=== PATIENT | female | born 1995 | race Two or more races ===

== ENCOUNTER → 2022-08-07 | Outpatient (CLI) | payer OTHER | LOC: M PLALAB 11:14 | PROVIDERS: ATTEND Advanced Practice Midwife | DX: Z34.90 Encounter for supervision of normal pregnancy, unspecified, unspecified trimester (principal) ==

== ENCOUNTER → 2022-08-09 | Outpatient (CLI) | payer OTHER | LOC: M PLALAB 08:21 | PROVIDERS: ATTEND Advanced Practice Midwife | DX: Z34.90 Encounter for supervision of normal pregnancy, unspecified, unspecified trimester (principal) ==

== ENCOUNTER → 2022-09-05 | Outpatient (REF) | payer OTHER | LOC: M PLALAB 10:25 | PROVIDERS: ATTEND Advanced Practice Midwife | DX: Z53.9 Procedure and treatment not carried out, unspecified reason (principal) ==

== ENCOUNTER → 2022-09-15 | Outpatient (CLI) | payer OTHER ==
[2022-09-15 14:13] LABS: HEMOGLOBIN 12.3 g/dl (12.0-15.5); MEAN CORPUSCULAR HEMOGLOBIN 30.1 pg (27.0-33.0); MEAN CORPUSCULAR HGB CONC 33.2 g/dl (32.0-36.5); MEAN CORPUSCULAR VOLUME 90.5 fl (80.0-96.0); PLATELET COUNT, AUTOMATED 298 10^3/uL (150-450); RED BLOOD COUNT 4.09 10^6/uL (4.00-5.40); WHITE BLOOD COUNT 9.5 10^3/uL (4.0-10.0)
[2022-09-15 15:16] LABS: HIV 1&2 SCREEN CENTAUR NEGATIVE (NEGATIVE)
[2022-09-15 15:25] LABS: HEPATITIS C VIRUS ABY INDEX 0.1 INDEX (<0.8)
[2022-09-15 16:06] LABS: GC DNA AMPLIFICATION NEGATIVE (NEGATIVE)
== END ==
LOC: M PLALAB 10:02
PROVIDERS: ATTEND Advanced Practice Midwife
DX: Z34.01 Encounter for supervision of normal first pregnancy, first trimester (principal); Z3A.00 Weeks of gestation of pregnancy not specified

== ENCOUNTER → 2022-11-08 | Outpatient (CLI) | payer OTHER | LOC: M WHC 13:20 | PROVIDERS: ATTEND Advanced Practice Midwife | DX: Z34.02 Encounter for supervision of normal first pregnancy, second trimester (principal); Z3A.19 19 weeks gestation of pregnancy ==

== ENCOUNTER → 2022-12-01 | Outpatient (CLI) | payer OTHER | LOC: M WHC 11:47 | PROVIDERS: ATTEND Obstetrics & Gynecology | DX: Z34.02 Encounter for supervision of normal first pregnancy, second trimester (principal) ==

== ENCOUNTER → 2022-12-05 | Outpatient (CLI) | payer OTHER ==
[2022-12-05 14:27] LABS: HEMATOCRIT 33.2 % (36.0-47.0); HEMOGLOBIN 10.8 g/dl (12.0-15.5); MEAN CORPUSCULAR HEMOGLOBIN 30.6 pg (27.0-33.0); MEAN CORPUSCULAR HGB CONC 32.5 g/dl (32.0-36.5); MEAN CORPUSCULAR VOLUME 94.1 fl (80.0-96.0); PLATELET COUNT, AUTOMATED 263 10^3/uL (150-450); RED BLOOD COUNT 3.53 10^6/uL (4.00-5.40); WHITE BLOOD COUNT 11.9 10^3/uL (4.0-10.0)
== END ==
LOC: M PLALAB 09:42
PROVIDERS: ATTEND Advanced Practice Midwife
DX: Z34.02 Encounter for supervision of normal first pregnancy, second trimester (principal)

== ENCOUNTER → 2022-12-05 | Outpatient (CLI) | payer OTHER | LOC: M WHC 10:26 | PROVIDERS: ATTEND Advanced Practice Midwife | DX: Z34.02 Encounter for supervision of normal first pregnancy, second trimester (principal) ==

== ENCOUNTER → 2022-12-29 | Outpatient (CLI) | payer OTHER | LOC: M RAD 12:58 | PROVIDERS: ATTEND Advanced Practice Midwife | DX: Z34.02 Encounter for supervision of normal first pregnancy, second trimester (principal); Z3A.26 26 weeks gestation of pregnancy ==

== ENCOUNTER 2023-02-28 11:45 | Outpatient (CLI) | payer OTHER ==
[2023-02-28] VITALS (31 sets, daily range): BP systolic 131–169; BP diastolic 57–105
[~2023-02-28] VITALS: Ht 157.5 cm; Wt 113.2 kg
[2023-02-28] MEDS ORDERED: ESGI1CAP PO (12:16)
[2023-02-28] MEDS ORDERED: ACET-897 PO (12:16)
[2023-02-28] MEDS ORDERED: PRENTAB9 PO (12:16)
[2023-02-28] MEDS ORDERED: TUMS750C5 PO (12:16)
[2023-02-28] MEDS ORDERED: HOME MED LIST COMPLETE! XX SCH (12:20)
[2023-02-28 12:50] LABS: HEMATOCRIT 31.7 % (36.0-47.0); HEMOGLOBIN 10.3 g/dl (12.0-15.5); MEAN CORPUSCULAR HEMOGLOBIN 28.7 pg (27.0-33.0); MEAN CORPUSCULAR HGB CONC 32.5 g/dl (32.0-36.5); MEAN CORPUSCULAR VOLUME 88.3 fl (80.0-96.0); PLATELET COUNT, AUTOMATED 296 10^3/uL (150-450); RED BLOOD COUNT 3.59 10^6/uL (4.00-5.40); WHITE BLOOD COUNT 11.7 10^3/uL (4.0-10.0)
[2023-02-28 13:20] LABS: URIC ACID 4.4 MG/DL (3.1-7.8)
[2023-02-28 13:22] LABS: LDH LACTATE DEHYDROGENASE 197 U/L (120-246)
[2023-02-28 13:23] LABS: ALT/SGPT 10 U/L (7.0-40); AST/SGOT 14 U/L (<34); BILIRUBIN,TOTAL 0.3 MG/DL (0.3-1.2); CREATININE FOR GFR 0.47 MG/DL (0.55-1.30); GLOMERULAR FILTRATION RATE > 60.0 (>60)
[2023-02-28 13:30] LABS: TOTAL PROTEIN,RANDOM URINE 19.5 MG/DL (0.0-14.0)
[2023-02-28 13:35] LABS: CREATININE,RANDOM URINE 90.6 MG/DL
[2023-02-28] MEDS ORDERED: BETAMETHASONE SOLUSPAN 6MG/ML 5ML VIAL IM SCH (14:00)
[2023-02-28] MEDS ORDERED: LABETALOL 100MG/20ML VIAL IV STA (18:59)
[2023-02-28] MEDS: LABETALOL 100MG TAB PO SCH (19:13)
[2023-02-28] MEDS ORDERED: LABETALOL 100MG TAB PO SCH (21:00)
[2023-03-01] VITALS (7 sets, daily range): BP systolic 120–143; BP diastolic 55–84
[2023-03-01] MEDS: LABETALOL 100MG TAB PO SCH (08:11)
[2023-03-01] MEDS ORDERED: LABE100T6 PO (08:54)
== END 2023-03-01 08:15 | disposition home or self-care (01) ==
LOC: M LDO 11:45
PROVIDERS: ATTEND Advanced Practice Midwife
DX: O13.3 Gestational [pregnancy-induced] hypertension without significant proteinuria, third trimester (principal); Z3A.35 35 weeks gestation of pregnancy
CPT/HCPCS: 36415; 59025; 76815; 76816; 82247; 82565; 82570; 83615; 84156; 84450; 84460; 84550; 85027; 86780; 86850; 86900; 86901; 96372; G0463; J0702

== ENCOUNTER → 2023-02-28 | Outpatient (REF) | payer OTHER ==
[~2023-02-28] MED LIST: ACET-897 PO; ESGI1CAP PO; LABE100T6 PO; PRENTAB9 PO; TUMS750C5 PO
== END ==
LOC: M SFHCWAGY 16:46
PROVIDERS: ATTEND Advanced Practice Midwife
DX: Z36.85 Encounter for antenatal screening for Streptococcus B (principal)

== ENCOUNTER → 2023-02-28 | Outpatient (REF) | payer OTHER | LOC: M PLALAB 13:24 | PROVIDERS: ATTEND Advanced Practice Midwife | DX: Z53.9 Procedure and treatment not carried out, unspecified reason (principal) ==

== ENCOUNTER 2023-03-01 13:42 | Outpatient (CLI) | payer OTHER ==
[~2023-03-01] VITALS: Ht 157.5 cm; Wt 113.9 kg
[2023-03-01 13:57] VITALS: BP 123/66; O2SAT 99
[2023-03-01] MEDS ORDERED: HOME MED LIST COMPLETE! XX SCH (14:10)
[2023-03-01] MEDS ORDERED: BETAMETHASONE SOLUSPAN 6MG/ML 5ML VIAL IM ONE (14:20)
== END 2023-03-01 14:45 | disposition home or self-care (01) ==
LOC: M LDO 13:42
PROVIDERS: ATTEND Obstetrics & Gynecology
DX: O13.3 Gestational [pregnancy-induced] hypertension without significant proteinuria, third trimester (principal); Z3A.35 35 weeks gestation of pregnancy
CPT/HCPCS: 59025; 96372; G0463; J0702

== ENCOUNTER 2023-03-11 07:30 | Inpatient (IN) | payer OTHER ==
[~2023-03-11] VITALS: Ht 157.5 cm; Wt 114.0 kg
[2023-03-11] VITALS (25 sets, daily range): BP systolic 119–177; BP diastolic 54–83
[2023-03-11] MEDS ORDERED: LIDOCAINE 1% MDV 20ML VIAL INFIL PRN (08:20)
[2023-03-11] MEDS ORDERED: OXYTOCIN DRIP 30 UNITS in IV 1 EA IV PRN (08:20)
[2023-03-11] MEDS: miSOPROStol 50MCG 1/2 TABLET SL SCH ×4 (09:16→21:00)
[2023-03-11 09:21] LABS: HEMATOCRIT 30.1 % (36.0-47.0); HEMOGLOBIN 9.6 g/dl (12.0-15.5); MEAN CORPUSCULAR HEMOGLOBIN 28.6 pg (27.0-33.0); MEAN CORPUSCULAR HGB CONC 31.9 g/dl (32.0-36.5); MEAN CORPUSCULAR VOLUME 89.6 fl (80.0-96.0); PLATELET COUNT, AUTOMATED 270 10^3/uL (150-450); RED BLOOD COUNT 3.36 10^6/uL (4.00-5.40); WHITE BLOOD COUNT 12.8 10^3/uL (4.0-10.0)
[2023-03-11 09:52] LABS: URIC ACID 5.4 MG/DL (3.1-7.8)
[2023-03-11 09:54] LABS: LDH LACTATE DEHYDROGENASE 159 U/L (120-246)
[2023-03-11 09:55] LABS: ALT/SGPT < 9 U/L (7.0-40); AST/SGOT < 8 U/L (<34); BILIRUBIN,TOTAL 0.3 MG/DL (0.3-1.2); CREATININE FOR GFR 0.54 MG/DL (0.55-1.30); GLOMERULAR FILTRATION RATE > 60.0 (>60)
[2023-03-11] MEDS ORDERED: EPIDURAL/PCA KEYS XX PRN (20:55)
[2023-03-11] MEDS ORDERED: ePHEDrine SULFATE 25 MG/5 ML(5MG/ML) SYRINGE IVP PRN (20:55)
[2023-03-11] MEDS ORDERED: diphenhydrAMINE 50MG/ML VIAL IV PRN (20:55)
[2023-03-11] MEDS ORDERED: ONDANSETRON 4MG 2ML VIAL IV PRN (20:55)
[2023-03-11] MEDS ORDERED: LR 500 ML IV PRN (20:55)
[2023-03-11] MEDS ORDERED: NALOXONE INJ 0.4MG/1ML VIAL IV PRN (20:55)
[2023-03-11] MEDS ORDERED: NALBUPHINE HCL 10 MG/ML 1ML AMP IV ONE (21:00)
[2023-03-11] MEDS: FENTANYL/ROPIVACAINE/NACL BAG 100 ML EPIDURAL SCH (21:01)
[2023-03-12] VITALS (36 sets, daily range): BP systolic 98–142; BP diastolic 51–85; TEMP 98.9; O2SAT 96–98
[2023-03-12] MEDS ORDERED: OXYTOCIN DRIP 30 UNITS in IV 1 EA IV SCH (00:25)
[2023-03-12] MEDS ORDERED: LR 1,000 ML IV SCH (00:25)
[2023-03-12] MEDS: miSOPROStol 50MCG 1/2 TABLET SL SCH (01:00)
[2023-03-12] MEDS: FENTANYL/ROPIVACAINE/NACL BAG 100 ML EPIDURAL SCH (05:20)
[2023-03-12 12:58] LABS: CORD GAS ABE V -1.8; CORD GAS HCO3 V 22.2 MMOL/L; CORD GAS O2 SAT V 58.3 %; CORD GAS PCO2 V 35.8 mmHg; CORD GAS PH V 7.41 UNITS; CORD GAS PO2 V 32.8 mmHg; CORD GAS TCO2 V 23.3 MMOL/L
[2023-03-12 13:01] LABS: CORD GAS ABE A -2.5; CORD GAS HCO3 A 24.3 MMOL/L; CORD GAS O2 SAT A 27.1 %; CORD GAS PCO2 A 49.4 mmHg; CORD GAS SBC A 20.7 MMOL/L; CORD GAS TCO2 A 25.8 MMOL/L
[2023-03-12] MEDS ORDERED: ACETAMINOPHEN TAB 650MG DOSE (2X325MG) PO PRN (13:50)
[2023-03-12] MEDS ORDERED: IBUPROFEN 600MG TAB PO PRN (13:50)
[2023-03-12] MEDS ORDERED: MOM 30ML SUSPENSION UDC PO PRN (13:50)
[2023-03-12] MEDS ORDERED: RHOGAM 300MCG (1500IU) INJ IM SCH (13:50)
[2023-03-12] MEDS: DOCUSATE SODIUM 100MG CAPSULE PO PRN (15:36)
[2023-03-12] MEDS: IBUPROFEN 800 MG TAB PO PRN (15:37)
[2023-03-12] MEDS: ACETAMINOPHEN 500 MG TAB PO PRN (18:10)
[2023-03-13] MEDS: ACETAMINOPHEN 500 MG TAB PO PRN ×4 (00:25→21:31)
[2023-03-13 02:00] VITALS: BP 104/51; O2SAT 97
[2023-03-13] MEDS: IBUPROFEN 800 MG TAB PO PRN ×2 (05:45→14:09)
[2023-03-13 06:00] VITALS: BP 128/63; O2SAT 98
[2023-03-13] MEDS: DOCUSATE SODIUM 100MG CAPSULE PO PRN ×2 (09:02→21:31)
[2023-03-13] MEDS: PRENATAL VITAMINS CHEWABLE TABLET PO SCH (09:02)
[2023-03-13] MEDS: DIBUCAINE 1% OINTMENT 30GM TOP PRN (15:25)
[2023-03-13] MEDS: ANUSOL HC CREAM 30GM TOP PRN (15:25)
[2023-03-13 18:00] VITALS: BP 141/83
[2023-03-14 05:47] VITALS: O2SAT 100
[2023-03-14 06:03] VITALS: BP 140/84
[2023-03-14] MEDS: PRENATAL VITAMINS CHEWABLE TABLET PO SCH (07:51)
[2023-03-14] MEDS: DIBUCAINE 1% OINTMENT 30GM TOP PRN (07:53)
[2023-03-14] MEDS: IBUPROFEN 800 MG TAB PO PRN (07:53)
[2023-03-14] MEDS: ANUSOL HC CREAM 30GM TOP PRN (07:54)
[2023-03-14] MEDS ORDERED: MEASLES,MUMPS,RUBELLA VACCINE INJ (MMR-II) SC.IMMUN ONE (09:00)
[2023-03-14] MEDS: ACETAMINOPHEN 500 MG TAB PO PRN (16:43)
== END 2023-03-14 18:25 | disposition home or self-care (01) | DRG 560 ==
LOC: M LDI 07:30 → M OBS 03-12 15:00
PROVIDERS: ADMIT Specialist; ATTEND Specialist
PROC: 3E033VJ Introduction of Other Hormone into Peripheral Vein, Percutaneous Approach (ICD-10-PCS; 2023-03-11)
PROC: 3E0P7VZ Introduction of Hormone into Female Reproductive, Via Natural or Artificial Opening (ICD-10-PCS; 2023-03-11)
PROC: 10E0XZZ Delivery of Products of Conception, External Approach (ICD-10-PCS; principal; 2023-03-12)
PROC: 0HQ9XZZ Repair Perineum Skin, External Approach (ICD-10-PCS; 2023-03-12)
DX: O13.4 Gestational [pregnancy-induced] hypertension without significant proteinuria, complicating childbirth (principal); O66.0 Obstructed labor due to shoulder dystocia; Z37.0 Single live birth; Z3A.37 37 weeks gestation of pregnancy; O70.0 First degree perineal laceration during delivery

== ENCOUNTER → 2023-04-11 | Outpatient (CLI) | payer OTHER ==
[2023-04-11 15:30] LABS: HEMOGLOBIN A1c 5.2 % (4.0-6.0)
[2023-04-11 16:25] LABS: ALBUMIN 4.3 G/DL (3.2-5.2); ALKALINE PHOSPHATASE 88 U/L (46-116); ALT/SGPT 16 U/L (7.0-40); AST/SGOT 11 U/L (<34); BILIRUBIN,TOTAL 0.4 MG/DL (0.3-1.2); BLOOD UREA NITROGEN 16 MG/DL (9-23); CALCIUM LEVEL 9.6 MG/DL (8.5-10.1); CARBON DIOXIDE LEVEL 26 MMOL/L (20-31); CHLORIDE LEVEL 104 MMOL/L (98-107); CHOLESTEROL LEVEL 164 MG/DL (<200); CHOLESTEROL RISK RATIO 4.21 (<5); CREATININE FOR GFR 0.66 MG/DL (0.55-1.30); FREE T4 0.89 NG/DL (0.89-1.76); GLOMERULAR FILTRATION RATE > 60.0 (>60); GLUCOSE, FASTING 89 MG/DL (60-100); HDL CHOLESTEROL 38.9 MG/DL (>40); LDL CHOLESTEROL 74.9 MG/DL (<100); NON-HDL-C 125.1 MG/DL; POTASSIUM SERUM 4.5 MMOL/L (3.5-5.1); SODIUM LEVEL 139 MMOL/L (136-145); THYROID STIMULATING HORMONE 1.564 uIU/ML (0.55-4.78); TOTAL PROTEIN 7.6 G/DL (5.7-8.2); TRIGLYCERIDES LEVEL 251 MG/DL (<150)
== END ==
LOC: M PLALAB 10:13
PROVIDERS: ATTEND Student in an Organized Health Care Education/Training Program
DX: O13.9 Gestational [pregnancy-induced] hypertension without significant proteinuria, unspecified trimester (principal); O99.340 Other mental disorders complicating pregnancy, unspecified trimester; Z13.220 Encounter for screening for lipoid disorders; F41.1 Generalized anxiety disorder; Z13.1 Encounter for screening for diabetes mellitus; Z3A.00 Weeks of gestation of pregnancy not specified

== ENCOUNTER → 2023-04-11 | Outpatient (REF) | payer OTHER | LOC: M SFHCPLAZ 16:31 | PROVIDERS: ATTEND Family Medicine | DX: Z53.9 Procedure and treatment not carried out, unspecified reason (principal) ==

== ENCOUNTER → 2023-11-22 | Outpatient (CLI) | payer OTHER | LOC: M PLALAB 14:55 | PROVIDERS: ATTEND Student in an Organized Health Care Education/Training Program | DX: M79.662 Pain in left lower leg (principal) ==

== ENCOUNTER → 2023-11-22 | Outpatient (REF) | payer OTHER | LOC: M SFHCPLAZ 14:43 | PROVIDERS: ATTEND Internal Medicine Hematology | DX: Z53.9 Procedure and treatment not carried out, unspecified reason (principal) ==

== ENCOUNTER → 2023-11-23 | Outpatient (CLI) | payer OTHER | LOC: M RAD 11:00 | PROVIDERS: ATTEND Student in an Organized Health Care Education/Training Program | DX: M79.662 Pain in left lower leg (principal) ==

== ENCOUNTER → 2023-12-13 | Outpatient (CLI) | payer OTHER | LOC: M LAB 15:26 → M PLALAB 15:26 | PROVIDERS: ATTEND Student in an Organized Health Care Education/Training Program | DX: I10 Essential (primary) hypertension (principal) ==

== ENCOUNTER → 2023-12-18 | Outpatient (REF) | payer OTHER | LOC: M SFHCPLAZ 10:16 | PROVIDERS: ATTEND Student in an Organized Health Care Education/Training Program | DX: I10 Essential (primary) hypertension (principal) ==

== ENCOUNTER → 2023-12-26 | Outpatient (CLI) | payer OTHER ==
[2023-12-26 15:44] LABS: PERCENT SATURATION 4.9 % (13.2-45.0)
[2023-12-26 15:47] LABS: FERRITIN 65.5 NG/ML (7.3-270.7)
[2023-12-26 16:00] LABS: HEMATOCRIT 37.4 % (36.0-47.0); HEMOGLOBIN 11.7 g/dl (12.0-15.5); MEAN CORPUSCULAR HEMOGLOBIN 26.5 pg (27.0-33.0); MEAN CORPUSCULAR HGB CONC 31.3 g/dl (32.0-36.5); MEAN CORPUSCULAR VOLUME 84.6 fl (80.0-96.0); PLATELET COUNT, AUTOMATED 314 10^3/uL (150-450); RED BLOOD COUNT 4.42 10^6/uL (4.00-5.40); WHITE BLOOD COUNT 9.2 10^3/uL (4.0-10.0)
== END ==
LOC: M PLALAB 11:57
PROVIDERS: ATTEND Student in an Organized Health Care Education/Training Program
DX: K92.1 Melena (principal)

== ENCOUNTER → 2024-01-29 | Outpatient (CLI) | payer OTHER ==
[2024-01-29 17:47] LABS: HEMOGLOBIN A1c 5.1 % (4.0-6.0)
[2024-01-29 17:52] LABS: ALBUMIN 4.5 G/DL (3.2-5.2); ALKALINE PHOSPHATASE 78 U/L (46-116); ALT/SGPT 17 U/L (7.0-40); AST/SGOT 9 U/L (<34); BILIRUBIN,TOTAL 0.8 MG/DL (0.3-1.2); BLOOD UREA NITROGEN 21 MG/DL (9-23); CARBON DIOXIDE LEVEL 26 MMOL/L (20-31); CHLORIDE LEVEL 102 MMOL/L (98-107); CREATININE FOR GFR 0.63 MG/DL (0.55-1.30); GLOMERULAR FILTRATION RATE > 60.0 (>60); GLUCOSE, FASTING 78 MG/DL (60-100); POTASSIUM SERUM 4.1 MMOL/L (3.5-5.1); SODIUM LEVEL 135 MMOL/L (136-145); TOTAL PROTEIN 7.6 G/DL (5.7-8.2)
== END ==
LOC: M PLALAB 14:30
PROVIDERS: ATTEND Student in an Organized Health Care Education/Training Program
DX: I10 Essential (primary) hypertension (principal); F50.81 Binge eating disorder

== ENCOUNTER → 2024-01-30 | Outpatient (CLI) | payer OTHER ==
[2024-02-03 16:07] LABS: INSULIN LEVEL 15.9 uIU/mL (2.6-24.9); RENIN LEVEL 2.677 ng/mL/hr (0.167-5.380)
== END ==
LOC: M PLALAB 06:54
PROVIDERS: ATTEND Student in an Organized Health Care Education/Training Program
DX: I10 Essential (primary) hypertension (principal)

== ENCOUNTER → 2024-02-05 | Outpatient (REF) | payer OTHER | LOC: M SFHCPLAZ 20:03 | PROVIDERS: ATTEND Family Medicine | DX: I10 Essential (primary) hypertension (principal); F50.81 Binge eating disorder; Z53.9 Procedure and treatment not carried out, unspecified reason ==

== ENCOUNTER → 2024-03-10 | Outpatient (CLI) | payer OTHER | LOC: M RAD 08:38 | PROVIDERS: ATTEND Student in an Organized Health Care Education/Training Program | DX: I10 Essential (primary) hypertension (principal) ==

== ENCOUNTER → 2024-11-05 | Outpatient (CLI) | payer OTHER ==
[2024-11-05 10:35] LABS: HEMATOCRIT 39.5 % (36.0-47.0); HEMOGLOBIN 12.6 g/dl (12.0-15.5); MEAN CORPUSCULAR HEMOGLOBIN 27.9 pg (27.0-33.0); MEAN CORPUSCULAR HGB CONC 31.9 g/dl (32.0-36.5); MEAN CORPUSCULAR VOLUME 87.6 fl (80.0-96.0); PLATELET COUNT, AUTOMATED 324 10^3/uL (150-450); RED BLOOD COUNT 4.51 10^6/uL (4.00-5.40); WHITE BLOOD COUNT 7.3 10^3/uL (4.0-10.0)
[2024-11-05 10:40] LABS: ALBUMIN 3.8 G/DL (3.2-5.2); ALKALINE PHOSPHATASE 70 U/L (35-104); ALT/SGPT 13 U/L (7.0-40); AST/SGOT 11 U/L (<34); BILIRUBIN,TOTAL 0.4 MG/DL (0.3-1.2); BLOOD UREA NITROGEN 25 MG/DL (9-23); CALCIUM LEVEL 9.1 MG/DL (8.5-10.1); CARBON DIOXIDE LEVEL 24 MMOL/L (20-31); CHLORIDE LEVEL 108 MMOL/L (98-107); CHOLESTEROL LEVEL 133 MG/DL (<200); CHOLESTEROL RISK RATIO 3.36 (<5); CREATININE FOR GFR 0.63 MG/DL (0.55-1.30); GLOMERULAR FILTRATION RATE > 60.0 (>60); GLUCOSE, FASTING 90 MG/DL (60-100); HDL CHOLESTEROL 39.5 MG/DL (>40); LDL CHOLESTEROL 71.5 MG/DL (<100); NON-HDL-C 93.5 MG/DL; POTASSIUM SERUM 4.2 MMOL/L (3.5-5.1); SODIUM LEVEL 140 MMOL/L (136-145); TOTAL PROTEIN 7.3 G/DL (5.7-8.2); TRIGLYCERIDES LEVEL 110 MG/DL (<150)
[2024-11-05 10:53] LABS: FREE T4 1.07 NG/DL (0.89-1.76)
== END ==
LOC: M PLALAB 07:02
DX: I10 Essential (primary) hypertension (principal)

== ENCOUNTER → 2025-01-09 | Outpatient (REF) | payer OTHER | LOC: M SFHCPLAZ 17:39 | PROVIDERS: ATTEND Family Medicine | DX: Z53.9 Procedure and treatment not carried out, unspecified reason (principal) ==

== ENCOUNTER → 2025-06-04 | Outpatient (REF) | payer OTHER ==
[2025-06-10 14:43] LABS: HPV APTIMA Not Detected (Not Detected)
== END ==
LOC: M SFHCWAGY 13:47
PROVIDERS: ATTEND Advanced Practice Midwife
DX: Z12.4 Encounter for screening for malignant neoplasm of cervix (principal); R87.610 Atypical squamous cells of undetermined significance on cytologic smear of cervix (ASC-US)
CPT/HCPCS: 87624; G0123